=== PATIENT | female | born 1965 ===

== ENCOUNTER 2016-03-06 15:37 | Emergency (ER) | payer MEDICARE ==
[2016-03-06] MEDS ORDERED: TORADOL IM ONE (21:17)
--- NOTE | 2016-03-06 21:22 | Emergency Department Report ---
HPI - General Chief Complaint: Extremity Injury, Lower Time Seen by Provider: 03/06/16 20:52 - HPI HPI: 42-year-old female, with history of septic joint, presents today with left knee pain and swelling 4 days. Patient has history of left total knee replacements that occurred 3 months ago. Patient states that she fell 2 weeks post surgery and did not follow up with her orthopedic. Tried Celebrex and ibuprofen without relief. Denies recent injury or trauma. Describes her pain as a 10 out of 10 constant, throbbing pain. Denies numbness, weakness, paresthesias. Also complaining of facial pain and runny nose 1 month and right lower dental pain. Positive for history of sinusitis. Denies fever, chills, nausea, vomiting, cough, chest pain, shortness of breath, abdominal pain. ED Past Medical Hx - Past Medical History Previous Medical History?: Yes Hx Hypertension: Yes Hx GERD: Yes Hx Psychiatric Treatment: Yes (depression) Additional medical history: MRSA - Surgical History Past Surgical History?: Yes Hx Cholecystectomy: Yes Additional Surgical History: Left knee replacement, 2 neck surgery, partial hysterectomy, Right foot surgery with instrumentation - Social History Smoking Status: Never Smoker Substance Use Type: Non Opiate Pain, Prescribed - Medications Home Medications: Home Medications Medication Instructions Recorded Confirmed Last Taken Type Acetaminophen/Codeine [Tylenol #3] 1 tab PO Q6H PRN #14 tab 03/06/16 Unknown Rx Amoxicillin/K Clav Tab [Augmentin 1 tab PO Q12HR #20 tab 03/06/16 Unknown Rx 875 mg] Naproxen [Naprosyn] 500 mg PO BID #30 tablet 03/06/16 Unknown Rx ED Review of Systems ROS: Stated complaint: LEFT KNEE SWOLLEN Other details as noted in HPI Constitutional: denies: chills, fever, malaise Eyes: denies: eye pain ENT: dental pain, congestion. denies: ear pain, throat pain Respiratory: denies: cough, shortness of breath, wheezing Cardiovascular: denies: chest pain, palpitations Endocrine: no symptoms reported Gastrointestinal: denies: abdominal pain, nausea, vomiting Musculoskeletal: joint swelling, arthralgia Skin: denies: rash Neurological: denies: headache, weakness, numbness, paresthesias Physical Exam - Physical Exam Vital Signs: Vital Signs 03/06/16 03/06/16 16:13 20:06 Temperature 97.7 F 97.9 F Pulse Rate 94 H 89 Respiratory 20 20 Rate Blood Pressure 137/96 Blood Pressure 149/87 [Left] O2 Sat by Pulse 100 100 Oximetry Physical Exam: GENERAL: The patient is well-developed and well-nourished. Patient is in NAD. HEAD: Normocephalic. Atraumatic. EYES: PERRL. EARS: External auditory canals and tympanic membranes clear; hearing grossly intact. NOSE: Normal nasal mucosa with minimal nasal drainage. Positive for tenderness to palpation of maxillary sinuses. THROAT: No erythema, swelling or exudates. NECK: Supple, nontender, without lymphadenopathy. CHEST/LUNGS: Clear to auscultation throughout. HEART/CARDIOVASCULAR: Regular rate and rhythm. No murmurs, rubs or gallops. ABDOMEN: Abdomen is soft, nontender. Bowel sounds normoactive. No guarding or rebound tenderness. LEFT KNEE: Tender to palpation, edematous and warm to touch. Full range of motion, but painful. Normal sensation. Peripheral pulses intact. Capillary refill less than 2 seconds. ED Course Vital Signs 03/06/16 03/06/16 16:13 20:06 Temperature 97.7 F 97.9 F Pulse Rate 94 H 89 Respiratory 20 20 Rate Blood Pressure 137/96 Blood Pressure 149/87 [Left] O2 Sat by Pulse 100 100 Oximetry ED Medical Decision Making - Lab Data Result diagrams: 03/06/16 21:33 Vital Signs 03/06/16 03/06/16 03/06/16 16:13 20:06 22:22 Temperature 97.7 F 97.9 F 98 F Pulse Rate 94 H 89 93 H Respiratory 20 20 20 Rate Blood Pressure 137/96 Blood Pressure 149/87 159/99 [Left] O2 Sat by Pulse 100 100 100 Oximetry - Radiology Data Radiology results: report reviewed Left knee x-ray: Knee prosthesis appears appropriately positioned. No evidence of loosening or acute fracture is seen. Diffuse soft tissue swelling is seen with joint effusion. - Medical Decision Making 50-year-old female presents today with left knee pain 4 days her x-ray results reveal a joint effusion and diffuse soft tissue swelling without evidence of acute bony abnormality. Patient was given Toradol and reports minimal symptomatic relief. Patient will be sent home on Tylenol 3 and naproxen and is encouraged to follow up with orthopedic. An orthopedic referral has been provided. Patient also complaining of nasal congestion and facial pain 1 month and dental pain. Patient will be sent home on Augmentin and is encouraged to follow up with primary care provider and dentist. Patient is in no acute distress at this time. She is encouraged to return to the emergency room for any worsening symptoms. Critical care attestation.: If time is entered above; I have spent that time in minutes in the direct care of this critically ill patient, excluding procedure time. ED Disposition Clinical Impression: Toothache Knee effusion Qualifiers: Laterality: left Qualified Code(s): M25.462 - Effusion, left knee Sinusitis Qualifiers: Sinusitis location: maxillary Chronicity: acute Recurrence: recurrent Qualified Code(s): J01.01 - Acute recurrent maxillary sinusitis Disposition: DISCHARGED TO HOME OR SELFCARE Is pt being admited?: No Does the pt Need Aspirin: No Condition: Stable Instructions: Knee Effusion (ED), Sinusitis (ED), Toothache (ED) Additional Instructions: Follow-up with orthopedic, primary care provider and dentist. Return to the emergency department if symptoms worsen. Prescriptions: Acetaminophen/Codeine [Tylenol #3] 1 tab PO Q6H PRN #14 tab PRN Reason: Pain Amoxicillin/K Clav Tab [Augmentin 875 mg] 1 tab PO Q12HR #20 tab Naproxen [Naprosyn] 500 mg PO BID #30 tablet Referrals: PRIMARY MD JOLANTA [Primary Care Provider] - 3-5 Days PAYAL LI MD [Staff Physician] - 3-5 Days Forms: Work/School Release Form(ED) Time of Disposition: 23:16
[2016-03-06 21:51] LABS: Basophils % (Auto) 0.6 % (0.0-1.8); Eosinophils % (Auto) 1.4 % (0.0-4.3); Hematocrit 34.6 % (30.3-42.9); Hemoglobin 11.2 gm/dl (10.1-14.3); Mean Corpuscular HGB Conc 32 % (30-34); Mean Corpuscular Hemoglobin 27 pg (28-32); Mean Corpuscular Volume 82 fl (79-97); Platelet Count 228 K/mm3 (140-440); Red Cell Distribution Width 15.1 % (13.2-15.2); White Blood Count 7.5 K/mm3 (4.5-11.0)
[2016-03-06 22:23] VITALS: BP 159/99
--- NOTE | 2016-03-06 23:01 | XRay Report ---
FINAL REPORT PROCEDURE: XR KNEE 3V LT TECHNIQUE: Two views of the left knee are obtained HISTORY: Pain - h/o TKR COMPARISON: No prior studies are available for comparison. FINDINGS: Knee prosthesis appears appropriately positioned. No evidence of loosening or acute fracture is seen. Diffuse soft tissue swelling is seen with joint effusion. IMPRESSION: Joint effusion and diffuse soft tissue swelling is seen without evidence of acute bony abnormality.
[2016-03-06] MEDS ORDERED: TYLENOL #3 PO ONE (23:30)
== END 2016-03-06 23:55 | disposition home or self-care (01) ==
LOC: ED 15:37
DX: M25.462 Effusion, left knee (principal); J01.01 Acute recurrent maxillary sinusitis; K08.89 Other specified disorders of teeth and supporting structures; I10 Essential (primary) hypertension; K21.9 Gastro-esophageal reflux disease without esophagitis; F32.9 Major depressive disorder, single episode, unspecified; Z98.890 Other specified postprocedural states
CPT/HCPCS: 36415; 73562; 85025; 96372; 99284; J1885

== ENCOUNTER 2016-03-19 15:36 | Emergency (ER) | payer MEDICARE ==
[2016-03-19 17:55] VITALS: BP 141/87
== END 2016-03-20 06:19 | disposition left against medical advice (07) ==
LOC: ED 15:36
DX: Z53.21 Procedure and treatment not carried out due to patient leaving prior to being seen by health care provider (principal)